=== PATIENT | female | born 1960 | race Caucasian/White ===

== ENCOUNTER 2023-01-10 12:33 | Emergency (ER) | payer MEDICARE, MEDICAID ==
[~2023-01-10] VITALS: Ht 170.2 cm; Wt 75.0 kg
[~2023-01-10 12:33] MED LIST: ARMO50TA2; DICL100G15; DIME240C2; ESOM40CA2; HYDR-3972; MACROBID PO; MARIJUANA OIL; NAPR-996; PRED10TA PO; VENL-191 PO; ZOLP10TA5
--- NOTE | 2023-01-10 13:22 | NUR ---
PT PRESENTS TO THE ER FOR " NOT FEELING VERY GOOD, MY MOMS BEEN HERE FOR 5 WEEKS" "SHAKILA BEEN UP HERE EVERYDAY AND [place] [facility] AND I MUST OF CAUGHT SOMETHING FROM SOMEONE" PT REPORTS SHE KEEPS HAVING TO CLEAR HER THROAT, AND HAVING COUGHING.
[2023-01-10 13:32] LABS: BASOPHILS % (AUTO) 0.6 % (0-1); EOSINOPHILS % (AUTO) 1.1 % (0-6); HEMATOCRIT 34.3 % (35.0-45.0); HEMOGLOBIN 11.3 g/dl (12.0-16.0); LYMPHOCYTES # (AUTO) 1.2 X10'3 (1.1-4.8); LYMPHOCYTES % (AUTO) 28.9 % (21-51); MEAN CORPUSCULAR HEMOGLOBIN 28.4 PG (27.0-31.0); MEAN CORPUSCULAR VOLUME 85.9 FL (78-98); MEAN PLATELET VOLUME 9.4 FL (7.4-10.4); MONOCYTES # (AUTO) 0.7 X10'3 (0-0.9); MONOCYTES % (AUTO) 15.8 % (2-12); NEUTROPHILS # (AUTO) 2.2 X10'3 (1.8-7.7); NEUTROPHILS % (AUTO) 53.6 % (42-75); PLATELET COUNT 160 X10'3 (140-440); RED BLOOD COUNT 3.99 X10'6 (4.20-5.60); WHITE BLOOD COUNT 4.1 X10'3 (4.5-11.0)
[2023-01-10 13:49] LABS: ALANINE AMINOTRANSFERASE 28 U/L (12-78); ALBUMIN 3.6 G/DL (3.4-5.0); ALBUMIN/GLOBULIN RATIO 1.2 (1.1-1.5); ALKALINE PHOSPHATASE 111 IU/L (46-116); ANION GAP 6 (8-16); ASPARTATE AMINO TRANSFERASE 38 U/L (10-37); BILIRUBIN,TOTAL 0.2 MG/DL (0.1-1.0); BLOOD UREA NITROGEN 9 MG/DL (7-18); BUN/CREATININE RATIO 10.6 (10.0-20.0); CALCIUM 8.8 MG/DL (8.5-10.1); CHLORIDE 104 MMOL/L (99-107); CREATININE 0.85 MG/DL (0.40-0.90); GLUCOSE 121 MG/DL (70-104); POTASSIUM 3.5 MMOL/L (3.5-5.1); SODIUM 141 MMOL/L (135-145); TOTAL CARBON DIOXIDE 30.8 MMOL/L (24-32); TOTAL PROTEIN 6.6 G/DL (6.4-8.2); eCRCL 66 ML/MIN; eGFR 68 ML/MIN
[2023-01-10 13:54] LABS: PRO BRAIN NATRIURETIC PEPTIDE 128 PG/ML (0-125)
[2023-01-10 15:34] VITALS: BP 120/72; PULSE 90; RESP 17; TEMP 98.4; O2SAT 98
--- NOTE | 2023-01-10 16:04 | NUR ---
AGREE WITH NS GENERAL ASSESSSMENT. PT IN STABLE CONDITION.
== END 2023-01-10 16:05 | disposition home or self-care (01) ==
LOC: ER 12:33
DX: R05.9 Cough, unspecified (principal); Z20.822 Contact with and (suspected) exposure to COVID-19; R09.81 Nasal congestion; G35 Multiple sclerosis; G89.29 Other chronic pain; Z56.0 Unemployment, unspecified; Z88.0 Allergy status to penicillin; Z88.2 Allergy status to sulfonamides; Z79.899 Other long term (current) drug therapy
CPT/HCPCS: 36415; 71046; 80053; 83880; 85025; 87811; 99284

== ENCOUNTER 2024-05-20 20:57 | Emergency (ER) | payer MEDICARE, MEDICAID ==
[~2024-05-20] VITALS: Ht 170.2 cm; Wt 87.7 kg
[~2024-05-20 20:57] MED LIST changes: +NAPR-1168; -NAPR-996
[2024-05-20 21:20] VITALS: BP 134/73; PULSE 84; RESP 18; O2SAT 100
[2024-05-20 23:24] VITALS: TEMP 97.9
[2024-05-20] MEDS: methylPREDNISolone sod succ 125mg/2ml vial IM ONE (23:29)
== END 2024-05-20 23:37 | disposition home or self-care (01) ==
LOC: ER 20:58
DX: G35 Multiple sclerosis (principal); G89.29 Other chronic pain; Z88.0 Allergy status to penicillin; Z88.2 Allergy status to sulfonamides; Z79.899 Other long term (current) drug therapy; Z56.0 Unemployment, unspecified; Z98.890 Other specified postprocedural states
CPT/HCPCS: 96372; 99283; J2919

== ENCOUNTER 2025-02-28 16:26 | Emergency (ER) | payer MEDICARE, MEDICAID ==
[~2025-02-28] VITALS: Ht 170.2 cm; Wt 76.4 kg
[2025-02-28 16:31] VITALS: BP 162/79; PULSE 85; TEMP 97.6; O2SAT 99
--- NOTE | 2025-02-28 16:38 | Physician Documentation ---
History of Present Illness ~ Chief Complaint: Neck pain Stated Complaint: NECK PAIN Time Seen by MD: 16:37 Primary Medical Doctor: DR. CAGLE HPI 64-year-old female presents with the acute onset cervical pain without acute injury. States she does have a history of MS but does not think that this is an MS flare. States she has pain with lateral rotation of her neck. He has any numbness or tingling in her arms. Reports that the pain is primarily in the left side starting at the base of her skull Medication Reconciliation Allergies: Coded Allergies: Penicillins (Verified Allergy, Mild, 02/28/25) Sulfa (Sulfonamide Antibiotics) (Verified Allergy, Mild, 02/28/25) Scheduled Armodafinil (Nuvigil), DAILY, (Reported) Lidocaine (Lidoderm), 1 PATCH TOP DAILY Nitrofurantoin/Nitrofuran Mac* (Macrobid*), 0 PO DAILY, (Reported) Prednisone (Prednisone), 0 PO DAILY Venlafaxine Hcl* (Effexor*), 75 MG PO DAILY, (Reported) [Marijuana Oil], PRN, (Reported) Miscellaneous Medications Diclofenac Sodium (Voltaren), (Reported) Dimethyl Fumarate (Tecfidera), (Reported) Esomeprazole Magnesium (Nexium), (Reported) Hydrocodone Bit/Acetaminophen (Hydrocodon-Acetaminophn 10-325 tablet), (Reported) Naproxen (Naproxen), (Reported) Zolpidem Tartrate* (Ambien*), (Reported) Past Medical History Past Medical History: No Pertinent History, Multiple Sclerosis, Chronic Pain Past Surgical History: orthopedic surgeries, other Alcohol Use: Rarely Drug Use: none Lives with: Other Lives In: Home Occupation: unemployed, disabled Review of Systems All Other Systems at this time: Reviewed and Negative ROS As stated above in the HPI, otherwise all systems are reviewed and negative. Physical Exam Vital Signs: Temperature: 97.6, Heart Rate: 85, Respiratory Rate: 16, BP: 162/79, Pulse Oximetry: 99, Weight: 76.360 Oxygen Flow Rate: 0 Physical Exam General: Alert, no apparent distress. Neck: Decreased range of motion due to pain, tender to the left trapezius via palpation. Cardiovascular: Regular rate and rhythm, no murmurs. Extremities: Normal range of motion, no deformity. Neurologic: Oriented x4. Psychiatric: Normal mood and affect. Skin: Normal color, warm and dry. No edema, no ecchymosis. Progress Results/Orders Results/Orders Vital Signs 02/28/25 02/28/25 16:31 17:17 Temp 97.6 Pulse 85 Resp 16 16 B/P (MAP) 162/79 Pulse Ox 99 O2 Flow Rate 0 Medical Decision Making Additional information obtaine: old records Findings This patient presents with a suspected cervical strain. She states she attend intends to go to chiropractor. She did not want any narcotic medication. She states that she is able to take ibuprofen and does not take it very often. Therefore I am going to start her on lidoder and give her a Toradol shot today. She states she already takes baclofen for MS. Cyclobenzaprine I do not think is a safe option with the this information Differential Dx:Considerations: Include: Cervical muscle spasm, Discitis, DJD, Meningitis, Thyroiditis, Torticollis, Vertebral artery dissect., Other Departure Disposition: 01 HOME / SELF CARE / HOMELESS Impression: Primary Impression: Strain of neck muscle Additional Impression: Neck pain Condition: Improved Discharge Instructions: Cervical Sprain Referrals: NO PRIMARY CARE PROVIDER (PCP) Prescriptions Lidocaine (Lidoderm) 5 % Adh..patch 1 PATCH TOP DAILY for 30 Days, #10 PATCH 0 Refills may wear up to 12 hours Prov: JL BENNETT NP 02/28/25 Education Educated: Patient Educated regarding: diagnosis Signature Scribe Signature: g Attestation: Scribed for Lj Bennett Reservation Manager by Lj Vasquez NP . 02/28/25 17:04 LJ BENNETT NP Feb 28, 2025 16:37 LUIS EDUARDO WARREN MD Mar 01, 2025 07:18
[2025-02-28] MEDS ORDERED: ketorolac trometh 30MG/ML vial 30 MG/ML VIAL IM ONE (16:45)
[2025-02-28] MEDS ORDERED: LIDO-52 TOP (17:03)
[2025-02-28 17:17] VITALS: RESP 16
[2025-02-28] MEDS: ketorolac trometh 15mg/ml vial 15 MG/ML ML IM ONE (17:17)
== END 2025-02-28 17:43 | disposition home or self-care (01) ==
LOC: ER 16:27
DX: S16.1XXA Strain of muscle, fascia and tendon at neck level, initial encounter (principal); G89.29 Other chronic pain; Z88.0 Allergy status to penicillin; Z88.2 Allergy status to sulfonamides; Z79.899 Other long term (current) drug therapy; Z56.0 Unemployment, unspecified; Z98.890 Other specified postprocedural states; X58.XXXA Exposure to other specified factors, initial encounter; Y93.89 Activity, other specified; Y92.89 Other specified places as the place of occurrence of the external cause; Y99.8 Other external cause status
CPT/HCPCS: 96372; 99283; J1885